=== PATIENT | male | born 1970 ===

== ENCOUNTER 2023-09-21 19:13 | Emergency (ER) | payer SELFPAY | END 2023-09-21 22:44 | disposition home or self-care (01) | LOC: MW.ED 19:13 | DX: S62.330A Displaced fracture of neck of second metacarpal bone, right hand, initial encounter for closed fracture (principal); W50.0XXA Accidental hit or strike by another person, initial encounter | CPT/HCPCS: 29125; 73130-26-RT; 73130-RT; 99283 ==